=== PATIENT | female | born 1975 | race Two or more races ===

== ENCOUNTER 2019-01-19 11:16 | Day surgery (SDC) | payer MEDICAID ==
[2019-01-15 15:22] LABS: Basophils # (auto) 0.1 uL; Eosinophils # (auto) 0.2 uL; Eosinophils % (auto) 2.1 % (0.0-7.0); Lymphocytes % (auto) 26.5 % (10.0-50.0); Mean Corpuscular Hemoglobin 26.7 pg (28.0-32.0); Nucleated Red Blood Cells % 0.1 %
[2019-01-15 15:24] LABS: Basophils % (auto) 1.3 % (0.0-2.0); Hematocrit 38.8 % (36.0-46.0); Hemoglobin 12.7 g/dL (12.2-16.2); Lymphocytes # (auto) 2.3 uL; Mean Corpuscular Hgb Conc. 32.6 g/dL (32.0-36.0); Mean Corpuscular Volume 81.9 fL (80.0-100.0); Monocytes # (auto) 0.4 uL; Monocytes % (auto) 5.2 % (0.0-12.0); Neutrophils # (auto) 5.5 uL; Neutrophils % (auto) 64.9 % (37.0-80.0); Platelet Count (auto) 331 10^3/uL (140-450); Red Blood Cells 4.74 10^6/uL (4.0-5.20); White Blood Cell 8.5 10^3/uL (4.4-10.8)
[2019-01-15 15:25] LABS: Urine Bacteria NONE SEEN /hpf (None Seen); Urine Blood 2+ /uL (Negative); Urine Specific Gravity 1.008 (1.001-1.035); Urine WBC 138 /hpf (0 - 5)
[2019-01-15 15:31] LABS: INR 0.98 (0.9-1.15); Partial Thromboplastin Time 25.4 sec (23.78-33.04)
[2019-01-15 15:35] LABS: Potassium 4.2 mmol/L (3.5-5.1)
[2019-01-15 15:45] LABS: Albumin 3.9 g/dL (3.4-5.0); BUN/Creatinine Ratio 20.3; Bilirubin, Total 0.2 mg/dL (0.2-1.0); Calcium 9.6 mg/dL (8.5-10.1); Total Protein 8.4 g/dL (6.4-8.2)
[~2019-01-19] VITALS: Ht 149.9 cm; Wt 65.8 kg
[2019-01-19] MEDS ORDERED: ceFAZolin 1GM/50ML 50 ML IV ONE (12:01)
[2019-01-19] MEDS ORDERED: fentaNYL CITRATE 100 MCG/2 ML VL ONE (14:37)
[2019-01-19] MEDS ORDERED: MIDAZOLAM HCL 1MG/1ML-2 ML VIAL ONE (14:37)
[2019-01-19] MEDS ORDERED: PROPOFOL 10 MG/ML 20 ML IV ONE (14:37)
[2019-01-19] MEDS ORDERED: fentaNYL CITRATE 100 MCG/2 ML VL IV PRN (15:15)
[2019-01-19] MEDS ORDERED: hydrALAZINE HCL 20 MG/ML VL IV PRN (15:15)
[2019-01-19] MEDS ORDERED: ONDANSETRON HCL 4 MG/2 ML VIAL IV ONE (15:15)
[2019-01-19] MEDS ORDERED: ePHEDrine SULFATE 50 MG/ML AMP IV PRN (15:15)
[2019-01-19 16:15] VITALS: BP 114/64
== END 2019-01-19 16:30 | disposition home or self-care (01) ==
LOC: SUR 11:16
PROVIDERS: ATTEND Urology
DX: N13.1 Hydronephrosis with ureteral stricture, not elsewhere classified (principal); M47.816 Spondylosis without myelopathy or radiculopathy, lumbar region; D64.9 Anemia, unspecified; Z79.899 Other long term (current) drug therapy; Z98.890 Other specified postprocedural states
CPT/HCPCS: 36415; 52005; 52332; 74018; 74420; 76000; 80053; 81001; 84702; 85025; 85610; 85730; C1769; C2617; J0690; J2250; J2704; J3010